=== PATIENT | female | born 1960 | race Caucasian/White ===

== ENCOUNTER 2019-01-02 08:52 | Outpatient (CLI) | payer OTHER ==
--- NOTE | 2019-01-02 10:05 | MMO ---
Bilateral MAMMO Bilat Screen [facility]. CLINICAL HISTORY: Patient is 58 years old and is seen for screening. The patient has no family history of breast cancer. The patient has no personal history of cancer. VIEWS: The views performed were: bilateral craniocaudal with tomosynthesis and bilateral mediolateral oblique with tomosynthesis. FILMS COMPARED: The present examination has been compared to prior imaging studies performed at [facility] on 11/01/2004, and at [facility] on 05/07/2002. MAMMOGRAM FINDINGS: There are scattered fibroglandular densities. Left breast: There are no suspicious masses, calcifications or areas of architectural distortion. There are benign appearing calcifications in the left breast. Right breast: indeterminate calcifications in the upper slightly outer quadrant. In the left breast, there are no suspicious masses, calcifications or areas of architectural distortion. IMPRESSION: FINDING IN THE RIGHT BREAST REQUIRES ADDITIONAL EVALUATION. ADDITIONAL PROJECTIONS (RIGHT CRANIOCAUDAL SPOT COMPRESSION MAGNIFICATION; RIGHT MEDIOLATERAL OBLIQUE SPOT COMPRESSION MAGNIFICATION; AND RIGHT MEDIOLATERAL) ARE RECOMMENDED. THE RESULTS OF THIS EXAM WERE SENT TO THE PATIENT. ACR BI-RADS Category 0 - Incomplete: Need additional imaging evaluation. [facility] will notify the patient of the need for additional imaging services. MAMMOGRAPHY NOTE: 1. A negative mammogram report should not delay a biopsy if a dominant of clinically suspicious mass is present. 2. Approximately 10% to 15% of breast cancers are not detected by mammography. 3. Adenosis and dense breasts may obscure an underlying neoplasm. Reported by: JUDIT GIBBS MD Electonically Signed: [id number]
== END 2019-01-02 08:53 | disposition home or self-care (01) ==
LOC: BICMAMMO 08:52
PROVIDERS: ATTEND Family Medicine
DX: Z12.31 Encounter for screening mammogram for malignant neoplasm of breast (principal)
CPT/HCPCS: 77063; 77067

== ENCOUNTER 2019-01-06 12:42 | Outpatient (CLI) | payer OTHER ==
--- NOTE | 2019-01-06 13:28 | MMO ---
Right Breast MAMMO Unilat Diag DDI RT+GENE. CLINICAL HISTORY: Patient is 58 years old and is seen for additional evaluation requested from prior study. The patient has no family history of breast cancer. The patient has no personal history of cancer. VIEWS: The views performed were: right craniocaudal spot compression magnification; right mediolateral spot compression magnification; and right mediolateral with tomosynthesis. FILMS COMPARED: The present examination has been compared to prior imaging studies performed at [facility] on 11/01/2004 and 01/02/2019, and at [facility] on 05/07/2002. MAMMOGRAM FINDINGS: There are scattered fibroglandular densities. There are amorphous or indistinct calcifications with grouped or clustered distribution seen in the middle upper-outer region of the right breast. IMPRESSION: CALCIFICATIONS IN THE RIGHT BREAST ARE SUSPICIOUS. A STEREOTACTIC BREAST BIOPSY IS RECOMMENDED. THE FINDINGS AND RECOMMENDATIONS WERE DISCUSSED WITH THE PATIENT PRIOR TO HER LEAVING THE CENTER. DISCUSSED WITH DR LANE. THE RESULTS OF THIS EXAM WERE SENT TO THE PATIENT. ACR BI-RADS Category 4 - Suspicious abnormality - biopsy should be considered MAMMOGRAPHY NOTE: 1. A negative mammogram report should not delay a biopsy if a dominant of clinically suspicious mass is present. 2. Approximately 10% to 15% of breast cancers are not detected by mammography. 3. Adenosis and dense breasts may obscure an underlying neoplasm. Reported by: VIANNEY MENDOZA MD Electonically Signed: [id number]
== END 2019-01-06 12:43 | disposition home or self-care (01) ==
LOC: BICMAMMO 12:42
PROVIDERS: ATTEND Family Medicine
DX: R92.1 Mammographic calcification found on diagnostic imaging of breast (principal)
CPT/HCPCS: G0279

== ENCOUNTER → 2019-01-21 | Day surgery (SDC) | payer OTHER ==
--- NOTE | 2019-01-21 09:20 | MMO ---
STEREOTACTIC BIOPSY RIGHT BREAST MICROCALCIFICATIONS SURGICAL SPECIMEN MAMMOGRAPHY DIAGNOSTIC RIGHT MAMMOGRAM POST BIOPSY: HISTORY: Abnormal mammogram. Microcalcifications upper outer right breast. FINDINGS: After explaining the procedure and answering all questions, the microcalcification cluster at the sup erior lateral aspect of the right breast was imaged. Sterile technique, buffered local anesthesia, stereotactic guidance, and a lateral approach were used to carefully advance the tip of a 10-gauge va cuum-assisted biopsy needle into the microcalcification cluster. Position confirmed with stereotactic imaging. Ten 10-gauge vacuum-assisted specimens were obtained. Surgical specimen mammography performed. Only f aint microcalcifications seen in the specimen. Stereotactic imaging showed most of the calcification cluster to remain immediately inferior to the needle. Needle was carefully repositioned , and additional samples obtained. Additional specimen mammography showed only faint microcalcifications. Most of the calcifications did remain in the biopsy bed. Localization clip was placed in the biopsy bed under stereotactic imaging. As the needle was withdraw n, the localization clip pulled back slightly into the more superficial tissues. Needle was removed. Patient tolerated the procedure well and was eventually dismissed in good conditi on. Post procedure mammographic imaging shows the localization clip to lie superior and lateral to the re maining microcalcifications. Gas pockets from the biopsy are seen within the microcalcification cluster. IMPRESSION: Technically successful stereotactic imaging right breast microcalcifications. Localization clip pulle d back slightly into the more superficial tissues (superior and lateral). Most of the microcalcifications of the cluster did remain, although multiple attempts were made to remove all of the calcifications. Cause for lack of success is not evident. Transcribed Date/Time: 01/21/2019 9:32 AM
== END ==
LOC: MAMMO 06:45
PROVIDERS: ATTEND Family Medicine
DX: N60.21 Fibroadenosis of right breast (principal)
CPT/HCPCS: 19081; 76098; 88305

== ENCOUNTER 2024-04-17 10:02 | Outpatient (CLI) | payer BC | END 2024-04-17 10:03 | disposition home or self-care (01) | LOC: BICMAMMO 10:02 | PROVIDERS: ATTEND Family Medicine | DX: Z12.31 Encounter for screening mammogram for malignant neoplasm of breast (principal) | CPT/HCPCS: 77063; 77067 ==